=== PATIENT | female | born 2000 ===

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

== ENCOUNTER → 2020-09-27 | Outpatient (CLI) | payer SELFPAY ==
[2020-09-28 03:19] LABS: Candida species (DNA Probe) Negative (NEGATIVE); G. vaginalis (DNA Probe) Positive (NEGATIVE); T. vaginalis (DNA Probe) Negative (NEGATIVE)
[2020-10-01 02:08] LABS: CHLAMYDIA TRACHOMATIS, NAA Negative (Negative)
== END | disposition home or self-care (01) ==
LOC: LAB 20:08 → LAB SHORT 20:08
PROVIDERS: Family Medicine
DX: N76.0 Acute vaginitis (principal); R30.0 Dysuria
CPT/HCPCS: 87077; 87086; 87186; 87480; 87491; 87510; 87591; 87660

== ENCOUNTER 2023-05-29 14:00 | Inpatient (IN) | payer OTHER ==
[~2023-05-29] VITALS: Ht 157.5 cm; Wt 107.0 kg
[2023-05-29 14:07] VITALS: BP 139/66
[2023-05-29] MEDS ORDERED: FAMO20 PO (15:47)
[2023-05-29] MEDS ORDERED: PRENATAL TABLE1 EAC2 PO (15:47)
[2023-05-29 15:55] VITALS: BP 139/78
[2023-05-29 15:58] LABS: BASOPHILS ABSOLUTE AUTO 0.03 K/mm3 (0.00-0.23); BASOPHILS PERCENT AUTO 0 % (0-2); EOSINOPHILS ABSOLUTE AUTO 0.03 K/mm3 (0.00-0.68); EOSINOPHILS PERCENT AUTO 0 % (0-6); Hematocrit 38.1 % (33.0-51.0); IMMATURE GRAN ABSOLUTE AUTO 0.07 K/mm3 (0.00-0.10); IMMATURE GRAN PERCENT AUTO 0 % (0-1); LYMPHOCYTES ABSOLUTE AUTO 1.33 K/mm3 (0.84-5.20); LYMPHOCYTES PERCENT AUTO 8 % (21-46); MONOCYTES ABSOLUTE AUTO 0.64 K/mm3 (0.16-1.47); MONOCYTES PERCENT AUTO 4 % (4-13); Mean Corpuscular HGB 30.4 pg (26.0-34.0); Mean Corpuscular HGB Conc 34.1 g/dL (31.5-36.5); Mean Corpuscular Volume 89 fL (80-100); Mean Platelet Volume 11.3 fL (9.1-12.4); NEUTROPHILS ABSOLUTE AUTO 15.71 K/mm3 (1.96-9.15); NEUTROPHILS PERCENT AUTO 88 % (41-73); Platelet Count 219 K/mm3 (150-400); RDW Coefficient Variation 13.2 % (11.7-14.2); RDW Standard Deviation 43.2 fL (35.1-46.3); Red Blood Cell Count 4.27 M/mm3 (3.80-5.20); White Blood Cell Count 17.81 K/mm3 (4.00-11.30)
[2023-05-29 16:52] VITALS: BP 132/69
[2023-05-29 17:53] VITALS: BP 147/77
[2023-05-29 20:57] VITALS: BP 130/70
[2023-05-30] VITALS (29 sets, daily range): BP systolic 112–177; BP diastolic 54–80
[2023-05-31 01:12] VITALS: BP 117/64
[2023-05-31 05:49] VITALS: BP 115/57
[2023-05-31 07:33] VITALS: BP 121/57
--- NOTE | 2023-05-31 08:01 | NUR ---
PT UP IN ROOM ONEL SELF CARE WELL. ONEL NB CARE WELL. BF INDEPENDANTLY. S.O. VERY SUPPORTIVE AND HELPFUL. D/C INSTRUCTIONS DISCUSSED. ASKS APPROPRIATE QUESTIONS. PLAN TO MOVE TO BOARDER STATUS TODAY. PT WORKING ON D/C PAPERWORK
[2023-05-31 13:07] VITALS: BP 144/86
--- NOTE | 2023-05-31 13:26 | NUR ---
Spiritual care visit attempted. Upon receiving a referral for spiritual care, I went to the RN desk in [facility]. Patient's RN asked patient if she wanted a visit from spiritual care. Patient declined a the request.
[2023-05-31 16:07] VITALS: BP 116/57
== END 2023-05-31 19:34 | disposition home or self-care (01) | DRG 807 ==
LOC: OBS 14:00 → BC 14:00 → OBS 15:16 → BC 15:18
PROVIDERS: ADMIT Family Medicine
PROC: 10E0XZZ Delivery of Products of Conception, External Approach (ICD-10-PCS; principal; 2023-05-31)
PROC: 3E0R3BZ Introduction of Anesthetic Agent into Spinal Canal, Percutaneous Approach (ICD-10-PCS; 2023-05-31)
PROC: 00HU33Z Insertion of Infusion Device into Spinal Canal, Percutaneous Approach (ICD-10-PCS; 2023-05-31)
PROC: 0UQGXZZ Repair Vagina, External Approach (ICD-10-PCS; 2023-05-31)
DX: O48.0 Post-term pregnancy (principal); Z37.0 Single live birth; Z3A.41 41 weeks gestation of pregnancy; K21.9 Gastro-esophageal reflux disease without esophagitis; O42.12 Full-term premature rupture of membranes, onset of labor more than 24 hours following rupture; O76 Abnormality in fetal heart rate and rhythm complicating labor and delivery; O99.62 Diseases of the digestive system complicating childbirth; O77.0 Labor and delivery complicated by meconium in amniotic fluid; O69.81X0 Labor and delivery complicated by cord around neck, without compression, not applicable or unspecified; O70.0 First degree perineal laceration during delivery; Z87.891 Personal history of nicotine dependence; Z79.899 Other long term (current) drug therapy
CPT/HCPCS: 36415; 51702; 59025; 85025; 86850; 86900; 86901; 86923; A9270; J0694; J1885; J2210; J2405; J2590; J3010; J7120

== ENCOUNTER → 2024-07-04 | Outpatient (CLI) | payer OTHER ==
[~2024-07-04] MED LIST changes: +FAMO20 PO; +PRENATAL TABLE1 EAC2 PO
[2024-07-04 20:52] LABS: Bacterial Vaginosis PCR Negative (NEGATIVE); Candida glabrata-krusei, PCR NOT DETECTED (NOT DETECT)
[2024-07-04 21:33] LABS: Candida Group, PCR DETECTED (NOT DETECT)
== END ==
LOC: LAB SHORT 13:09 → LAB 13:09
PROVIDERS: Family Medicine
DX: R39.89 Other symptoms and signs involving the genitourinary system (principal)
CPT/HCPCS: 87086; 87481; 87661; 87801